=== PATIENT | female | born 1955 | race Caucasian/White ===

== ENCOUNTER 2016-03-25 05:58 | Day surgery (SDC) | payer BC ==
[~2016-03-25] VITALS: Ht 152.4 cm; Wt 70.5 kg
[2016-03-25 06:25] VITALS: Ht 152.4 cm; Wt 70.5 kg
[2016-03-25] MEDS ORDERED: INSU100I17 SQ (06:54)
[2016-03-25] MEDS ORDERED: ATOR40TA68 PO (06:54)
[2016-03-25] MEDS ORDERED: AMLO-147 PO (06:54)
[2016-03-25] MEDS ORDERED: ASP81 PO (06:54)
[2016-03-25] MEDS ORDERED: LISI10TA2 PO (06:54)
[2016-03-25] MEDS ORDERED: LANT3I SC (06:54)
[2016-03-25] MEDS ORDERED: METF500T PO (06:54)
[2016-03-25 06:56] VITALS: BP 184/81; PULSE 54; RESP 22
[2016-03-25 07:38] VITALS: BP 134/66; PULSE 48; RESP 17
[2016-03-25] MEDS ORDERED: MIDAZOLAM 1 MG/ML 2 ML INJ ONE (07:41)
[2016-03-25] MEDS ORDERED: FENTAnyl 50 MCG/ML VIAL ONE (07:41)
[2016-03-25 08:00] VITALS: BP 149/76; PULSE 46; RESP 18
--- NOTE | 2016-03-25 21:00 | GILP ---
DATE OF PROCEDURE: NAME OF PROCEDURE: Colonoscopy. SURGEON: Kwabena Muller MD PREOPERATIVE DIAGNOSIS: Screening colonoscopy. POSTOPERATIVE DIAGNOSES: 1. Colonoscopy all the way to the cecum. 2. Occasional diverticulosis of the colon. 3. Internal hemorrhoids. 4. No colon neoplasm was identified. INDICATION FOR THE PROCEDURE: Ms. Evette Chung is a 60-year-old female patient who was noted to jordan ve positive occult blood in stool. She never had screening colonoscopy. The procedure and possible complications are well explained to the patient. She understood and cons ented to the procedure. DESCRIPTION OF PROCEDURE: Under the influence of fentanyl and Versed, the colonoscope was carefully introduced in the rectum and, under direct vision, it was advanced all the way to the cecum. FINDINGS: The patient had occasional diverticulosis of the colon. She had internal hemorrhoids. N o colon neoplasm was identified. She tolerated the procedure very well and there was no complication from the procedure. At the end of the procedure, she was awake with stable vital signs and she was discharged home to the care of h er family. IMPRESSION: 1. Colonoscopy all the way to the cecum. 2. Occasional diverticulosis of the colon. 3. Internal hemorrhoids. 4. No colon neoplasm was identified. PLAN: Next screening colonoscopy in 10 years. Dictated By: KWABENA CUEVA/MEGHAN Conf#: [id number] DID#: [id number] CC: KWABENA MULLER MD;*EndCC*
== END 2016-03-25 08:28 | disposition home or self-care (01) ==
LOC: GIL 05:58
PROVIDERS: ATTEND Internal Medicine Gastroenterology
DX: Z12.11 Encounter for screening for malignant neoplasm of colon (principal); K57.30 Diverticulosis of large intestine without perforation or abscess without bleeding; K64.9 Unspecified hemorrhoids; R19.5 Other fecal abnormalities
CPT/HCPCS: 45378; 82962; J2250; J3010